=== PATIENT | male | born 1970 | race Caucasian/White ===

== ENCOUNTER 2017-07-07 12:47 | Emergency (ER) | payer MEDICAID ==
[~2017-07-07] VITALS: Ht 180.3 cm; Wt 100.0 kg
[2017-07-07] MEDS ORDERED: TraMADol HCL 50 MG TABLET PO ONE (16:30)
[2017-07-07 20:30] VITALS: BP 134/98
== END 2017-07-07 20:41 | disposition home or self-care (01) ==
LOC: EMS 12:50
DX: S33.5XXA Sprain of ligaments of lumbar spine, initial encounter (principal); S83.91XA Sprain of unspecified site of right knee, initial encounter; I10 Essential (primary) hypertension; F15.10 Other stimulant abuse, uncomplicated; Z88.0 Allergy status to penicillin; V09.9XXA Pedestrian injured in unspecified transport accident, initial encounter; Y93.01 Activity, walking, marching and hiking; Y92.89 Other specified places as the place of occurrence of the external cause; Y99.8 Other external cause status
CPT/HCPCS: 71046; 72100; 93005; 99284

== ENCOUNTER 2017-07-25 07:00 | Emergency (ER) | payer MEDICAID ==
[~2017-07-25] VITALS: Ht 180.3 cm; Wt 100.0 kg
[2017-07-25] MEDS ORDERED: antihypertensive PO (07:20)
[2017-07-25] MEDS ORDERED: ACET-66 PO (07:20)
[2017-07-25 07:55] VITALS: BP 136/92
== END 2017-07-25 08:06 | disposition home or self-care (01) ==
LOC: EMS 07:02
DX: S83.8X1A Sprain of other specified parts of right knee, initial encounter (principal); I10 Essential (primary) hypertension; Z88.0 Allergy status to penicillin; Z79.899 Other long term (current) drug therapy; V98.8XXA Other specified transport accidents, initial encounter; Y93.89 Activity, other specified; Y92.89 Other specified places as the place of occurrence of the external cause; Y99.8 Other external cause status
CPT/HCPCS: 99282